=== PATIENT | female | born 1990 | race Caucasian/White ===

== ENCOUNTER 2017-10-16 03:44 | Emergency (ER) | payer BC ==
[2017-10-16] MEDS ORDERED: SPIR25TA78 PO (03:50)
[2017-10-16] MEDS ORDERED: NS(*) 0.9% 1000 ML BAG 1,000 ML IV ONE (03:58)
--- NOTE | 2017-10-16 03:58 | ER Report ---
History and Physical Time Seen By MD: 03:55 Hx. of Stated Complaint: PT HAD TDAP YESTERDAY. GOT UP THIS AM TO GET SOME MOTRIN AND WATER AND HAD SYCOPAL EPISODE. HPI/ROS CHIEF COMPLAINT: Syncope HISTORY OF PRESENT ILLNESS: 27-year-old female presents after sick a episode. 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 She's never had any problems with previous tetanus shots. She does not her arm is sore. She got up to get a glass of water and take some ibuprofen for her shoulder pain. She then had a syncopal episode. She denies head impact, neck pain, chest pain, shortness of breath. She denies any other symptoms of illness. Patient denies . REVIEW OF SYSTEMS: Respiratory: No cough, no dyspnea. Cardiovascular: No chest pain, no palpitations. Gastrointestinal: No vomiting, no abdominal pain. Musculoskeletal: No back pain. Allergies: Coded Allergies: No Known Drug Allergies (Unverified , 10/16/17) Home Meds Reported Medications Spironolactone (SPIRONOLACTONE) 25 Mg Tablet, 50 MG PO DAILY, TAB 10/16/17 Reviewed Nurses Notes: Yes Old Medical Records Reviewed: Yes Constitutional Vital Sign - Last 24 Hours 10/16/17 10/16/17 10/16/17 10/16/17 03:50 03:51 04:00 04:15 Temp 98.5 Pulse 71 75 66 Resp 18 14 13 B/P (MAP) 123/79 123/79 (94) 108/71 (83) Pulse Ox 100 O2 Delivery Room Air 10/16/17 04:30 Pulse 59 Resp 15 B/P (MAP) 102/69 (80) Physical Exam Vital signs stable, afebrile, pulse ox normal General Appearance: The patient is alert, has no immediate need for airway protection and no current signs of toxicity. Mild distress, slightly pale appearing, skin warm and dry HEENT: Pupils equal and round no injection. TMs normal, oropharynx without redness or exudate membranes are moist Respiratory: Chest is non tender, lungs are clear to auscultation. No chest wall tenderness Cardiac: regular rate and rhythm, no murmur Gastrointestinal: Abdomen is soft and non tender, no masses, bowel sounds normal. Musculoskeletal: Neck: Neck is supple and non tender. Extremities have full range of motion and are non tender. Skin: No rashes or lesions. DIFFERENTIAL DIAGNOSIS: After history and physical exam differential diagnosis was considered for syncope including but not limited to vasovagal syncope, arrhythmia, dehydration, ectopic , adverse reaction to tetanus vaccine and blood loss. Medical Decision Making Data Points Result Diagram: 10/16/17 0404 10/16/17 0404 Laboratory Hematology Test 10/16/17 04:04 Red Blood Count 5.11 M/uL (4.17-5.56) Mean Corpuscular Volume 88.5 fL (80.0-96.0) Mean Corpuscular Hemoglobin 31.4 pg (26.0-33.0) Mean Corpuscular Hemoglobin Concent 35.5 g/dL (32.0-36.0) Red Cell Distribution Width 13.0 % (11.5-14.5) Mean Platelet Volume 7.4 fL (7.2-11.1) Neutrophils (%) (Auto) 60.4 % (39.4-72.5) Lymphocytes (%) (Auto) 29.5 % (17.6-49.6) Monocytes (%) (Auto) 8.1 % (4.1-12.4) Eosinophils (%) (Auto) 1.6 % (0.4-6.7) Basophils (%) (Auto) 0.4 % (0.3-1.4) Nucleated RBC Relative Count (auto) 0.0 /100WBC Neutrophils # (Auto) 4.1 K/uL (2.0-7.4) Lymphocytes # (Auto) 2.0 K/uL (1.3-3.6) Monocytes # (Auto) 0.5 K/uL (0.3-1.0) Eosinophils # (Auto) 0.1 K/uL (0.0-0.5) Basophils # (Auto) 0.0 K/uL (0.0-0.1) Nucleated RBC Absolute Count (auto) 0.00 K/uL Sodium Level 137 mmol/L (137-145) Potassium Level 3.3 mmol/L (3.5-5.0) Chloride Level 101 mmol/L (98-107) Carbon Dioxide Level 19 mmol/L (22-31) Blood Urea Nitrogen 11 mg/dl (7-18) Creatinine 0.80 mg/dl (0.52-1.04) Glomerular Filtration Rate Calc > 60.0 Random Glucose 133 mg/dl (75-110) Calcium Level 9.4 mg/dl (8.4-10.2) Total Bilirubin 0.4 mg/dl (0.2-1.3) Aspartate Amino Transf (AST/SGOT) 22 U/L (0-35) Alanine Aminotransferase (ALT/SGPT) 19 U/L (0-56) Alkaline Phosphatase 67 U/L (0-126) Total Protein 7.0 gm/dl (6.3-8.2) Albumin 4.2 g/dl (3.5-5.0) Human Chorionic Gonadotropin, Qual Negative (NEGATIVE) Chemistry Test 10/16/17 04:04 White Blood Count 6.7 k/uL (4.5-11.0) Red Blood Count 5.11 M/uL (4.17-5.56) Hemoglobin 16.0 g/dL (12.0-16.0) Hematocrit 45.2 % (34.0-47.0) Mean Corpuscular Volume 88.5 fL (80.0-96.0) Mean Corpuscular Hemoglobin 31.4 pg (26.0-33.0) Mean Corpuscular Hemoglobin Concent 35.5 g/dL (32.0-36.0) Red Cell Distribution Width 13.0 % (11.5-14.5) Platelet Count 251 K/uL (150-450) Mean Platelet Volume 7.4 fL (7.2-11.1) Neutrophils (%) (Auto) 60.4 % (39.4-72.5) Lymphocytes (%) (Auto) 29.5 % (17.6-49.6) Monocytes (%) (Auto) 8.1 % (4.1-12.4) Eosinophils (%) (Auto) 1.6 % (0.4-6.7) Basophils (%) (Auto) 0.4 % (0.3-1.4) Nucleated RBC Relative Count (auto) 0.0 /100WBC Neutrophils # (Auto) 4.1 K/uL (2.0-7.4) Lymphocytes # (Auto) 2.0 K/uL (1.3-3.6) Monocytes # (Auto) 0.5 K/uL (0.3-1.0) Eosinophils # (Auto) 0.1 K/uL (0.0-0.5) Basophils # (Auto) 0.0 K/uL (0.0-0.1) Nucleated RBC Absolute Count (auto) 0.00 K/uL Glomerular Filtration Rate Calc > 60.0 Calcium Level 9.4 mg/dl (8.4-10.2) Total Bilirubin 0.4 mg/dl (0.2-1.3) Aspartate Amino Transf (AST/SGOT) 22 U/L (0-35) Alanine Aminotransferase (ALT/SGPT) 19 U/L (0-56) Alkaline Phosphatase 67 U/L (0-126) Total Protein 7.0 gm/dl (6.3-8.2) Albumin 4.2 g/dl (3.5-5.0) Human Chorionic Gonadotropin, Qual Negative (NEGATIVE) EKG/Imaging EKG Interpretation 12 lead EK Rhythm: normal sinus rhythm [place]: normal QRS: normal,? Voltage criteria for left ventricular hypertrophy ST segments: normal, no evidence of ischemia or dysrhythmia ED Course/Re-evaluation Clinical Indication for ER IV: Hydration, IV Access ED Course Patient was admitted to an examination room. H&P was done. The differential diagnoses was considered. Patient with a single episode after receiving a tetanus booster. She denies . Her vitals are stable. She is treated with IV fluid hydration. Diagnostic laboratory studies are unremarkable. test is negative. She reports feeling much better after a liter of fluid. She is advised to increase her fluid intake. She is discharged home. She is cautioned to notify providers of future tetanus shots that she had an adverse reaction. I do not think it's a true allergic reaction. I think she suffered vasovagal syncope. Decision to Disposition Date: October 16, 2017 Decision to Disposition Time: 04:37 Depart Departure Latest Vital Signs Vital Signs Date Time Temp Pulse Resp B/P (MAP) Pulse Ox O2 Delivery O2 Flow Rate FiO2 10/16/17 04:30 59 15 102/69 (80) 10/16/17 03:50 98.5 100 Room Air Impression: Primary Impression: Vasovagal syncope Additional Impression: Adverse reaction to diphtheria, tetanus, and pertussis vaccine Condition: Improved Disposition: HOME OR SELF-CARE Referrals: YVAN LAZO MD Patient Instructions: Syncope (ED) Additional Instructions: Follow-up with primary care if her symptoms persist past 3-5 days. Problem Qualifiers Additional Impression: Adverse reaction to diphtheria, tetanus, and pertussis vaccine Encounter type: initial encounter Qualified Codes: T50.A15A - Adverse effect of pertussis vaccine, including combinations with a pertussis component, initial encounter GALILEO RITTER DO October 16, 2017 03:58
[2017-10-16] MEDS ORDERED: ONDANSETRON 4 MG/2 ML VIAL IVP ONE (04:00)
[2017-10-16] MEDS ORDERED: KETOROLAC 30 MG/ML VIAL IVP ONE (04:00)
[2017-10-16 04:30] VITALS: BP 102/69
[2017-10-16 04:30] LABS: PLATELET COUNT, AUTOMATED 251 K/uL (150-450)
--- NOTE | 2017-10-16 04:52 | EKG ---
FACILITY: [facility] [place]IENT NAME: ROSIO GOMEZ : [id number] MR: [id number] V: [id number] EXAM DATE: ORDERING PHYSICIAN: GALILEO RITTER TECHNOLOGIST: LIONEL Reyes Reason : CARDIAC Blood Pressure : / mmHG Vent. Rate : 062 BPM Atrial Rate : 062 BPM P-R Int : 128 ms QRS Dur : 098 ms QT Int : 422 ms P-R-T Axes : -04 -14 018 degrees QTc Int : 428 ms Normal sinus rhythm Voltage criteria for left ventricular hypertrophy Abnormal ECG No previous ECGs available Confirmed by BRANDON POTTER ([id number]) on 10/17/2017 11:21:38 AM Referred By: Confirmed By:BRANDON POTTER
== END 2017-10-16 05:02 | disposition home or self-care (01) ==
LOC: ER 03:49
DX: R55 Syncope and collapse (principal); T50.A15A Adverse effect of pertussis vaccine, including combinations with a pertussis component, initial encounter
CPT/HCPCS: 84703; 85025; 93005; 96361; 96374; 96376; 99284; J1885; J2405; J7030; 82040; 82247; 82310; 82374; 82435; 82565; 82947; 84075; 84132; 84155; 84295; 84450; 84460; 84520; 96375